=== PATIENT | female | born 1975 | race Caucasian/White ===

== ENCOUNTER → 2016-08-16 | Outpatient (CLI) | payer OTHER ==
[~2016-08-16] MED LIST: IRON TABLETS325 MG PO; MOTRIN 800800 MG/TAB PO; PERCOCET 325 MG1 TA2 PO; PRENATAL PO; ZITHROMAX Z PA250 MG PO
== END ==
LOC: SUN.DIA 09:39
DX: O24.419 Gestational diabetes mellitus in pregnancy, unspecified control (principal); Z3A.32 32 weeks gestation of pregnancy; Z71.3 Dietary counseling and surveillance
CPT/HCPCS: G0108

== ENCOUNTER → 2016-08-31 | Outpatient (CLI) | payer OTHER | LOC: SUN.DIA 09:31 | DX: O24.419 Gestational diabetes mellitus in pregnancy, unspecified control (principal); Z3A.33 33 weeks gestation of pregnancy; Z71.3 Dietary counseling and surveillance | CPT/HCPCS: G0108 ==

== ENCOUNTER 2016-09-05 13:36 | Inpatient (IN) | payer OTHER ==
[~2016-09-05] VITALS: Ht 152.4 cm; Wt 70.9 kg
[2016-09-05] MEDS ORDERED: PRENATAL PO (13:44)
[2016-09-05 14:23] LABS: BASO % 0.3 % (0.0-2.0); EOS # 0.1 (0.0-0.7); EOS % 0.3 % (0-4.0); GRAN # 12.6 (1.4-6.5); GRAN % 84.7 % (42.2-75.2); HEMOGLOBIN 12.1 g/dl (12.5-16.0); LYMPH # 0.9 (1.2-3.4); LYMPH % 5.9 % (20.0-51.0); MEAN CELL VOLUME 82 fl (80.0-100.0); MEAN CORPUSCULAR HEMOGLOBIN 27 pg (27.0-31.0); MEAN CORPUSCULAR HGB CONC 33 g/dl (33.0-37.0); MEAN PLATELET VOLUME 9.3 fl (7.4-10.4); MONO # 1.1 (0.1-0.6); MONO % 7.4 % (1.7-9.3); PLATELET COUNT 245 K/mm3 (130-400); RED BLOOD COUNT 4.44 M/mm3 (4.10-5.30); REDCELL DISTRIBUTION WIDTH-CV 14.2 % (11.5-14.5); WHITE BLOOD COUNT 14.8 K/mm3 (4.8-10.8)
[2016-09-05 14:29] LABS: HEMATOCRIT 36.4 % (37.0-47.0)
[2016-09-05 14:37] LABS: ADJUSTED CALCIUM 9.3 mg/dL (8.4-10.2); ALBUMIN 3.5 gm/dL (3.5-5.0); BILIRUBIN,TOTAL 0.5 mg/dL (0.0-1.0); CALCIUM 8.9 mg/dL (8.4-10.2); CREATININE, serum 0.5 mg/dL (0.52-1.25); POTASSIUM 3.6 mmol/L (3.4-5.0); TOTAL PROTEIN 7.2 gm/dL (6.4-8.2)
[2016-09-05 14:39] LABS: INFLUENZA B NEGATIVE
[2016-09-05 17:30] VITALS: BP 141/67; PULSE 124; TEMP 101.8
[2016-09-05 17:37] LABS: PH 6 (5-8); SQUAMOUS EPITHELIAL 0-2 /hpf; URINE APPEARANCE Clear; URINE BACTERIA Rare /hpf; URINE BILIRUBIN Negative (NEGATIVE); URINE BLOOD Negative (NEGATIVE); URINE COLOR Yellow; URINE GLUCOSE Negative (NEGATIVE); URINE KETONE 1+ (NEGATIVE); URINE RBC 0-2 /hpf; URINE UROBILINOGEN Negative (NEGATIVE); URINE WBC 0-2 /hpf
[2016-09-05 18:38] LABS: BASO % 0.3 % (0.0-2.0); EOS % 0.1 % (0-4.0); GRAN # 12.4 (1.4-6.5); GRAN % 84.7 % (42.2-75.2); LYMPH # 0.8 (1.2-3.4); LYMPH % 5.5 % (20.0-51.0); MEAN CELL VOLUME 81 fl (80.0-100.0); MEAN CORPUSCULAR HGB CONC 34 g/dl (33.0-37.0); MEAN PLATELET VOLUME 9.5 fl (7.4-10.4); MONO # 1.1 (0.1-0.6); MONO % 7.8 % (1.7-9.3); PLATELET COUNT 243 K/mm3 (130-400); RED BLOOD COUNT 4.01 M/mm3 (4.10-5.30); REDCELL DISTRIBUTION WIDTH-CV 14.2 % (11.5-14.5); WHITE BLOOD COUNT 14.7 K/mm3 (4.8-10.8)
[2016-09-05 18:46] LABS: HEMATOCRIT 32.5 % (37.0-47.0); MEAN CORPUSCULAR HEMOGLOBIN 27 pg (27.0-31.0)
[2016-09-05 18:48] LABS: ADJUSTED CALCIUM 9.1 mg/dL (8.4-10.2); ALBUMIN 3.1 gm/dL (3.5-5.0); BILIRUBIN,TOTAL 0.5 mg/dL (0.0-1.0); CALCIUM 8.4 mg/dL (8.4-10.2); CREATININE, serum 0.47 mg/dL (0.52-1.25); POTASSIUM 3.2 mmol/L (3.4-5.0); TOTAL PROTEIN 6.7 gm/dL (6.4-8.2)
[2016-09-05 19:15] LABS: URIC ACID 3.4 mg/dL (2.5-6.2)
[2016-09-05 19:30] VITALS: TEMP 100.7
[2016-09-05 21:30] VITALS: BP 123/68; PULSE 118; TEMP 98.8
[2016-09-06 01:15] VITALS: BP 117/68; PULSE 104; TEMP 98.1
[2016-09-06 04:45] VITALS: BP 118/70; PULSE 99; TEMP 98.5
[2016-09-06 06:50] VITALS: BP 102/63; PULSE 93; TEMP 98
[2016-09-06 08:44] LABS: BASO % 0.3 % (0.0-2.0); EOS % 0.1 % (0-4.0); GRAN # 11.5 (1.4-6.5); GRAN % 81.5 % (42.2-75.2); LYMPH # 1.3 (1.2-3.4); LYMPH % 8.9 % (20.0-51.0); MEAN CELL VOLUME 83 fl (80.0-100.0); MEAN CORPUSCULAR HGB CONC 33 g/dl (33.0-37.0); MEAN PLATELET VOLUME 9.3 fl (7.4-10.4); MONO # 1.1 (0.1-0.6); MONO % 7.8 % (1.7-9.3); PLATELET COUNT 228 K/mm3 (130-400); RED BLOOD COUNT 3.88 M/mm3 (4.10-5.30); REDCELL DISTRIBUTION WIDTH-CV 14.5 % (11.5-14.5); WHITE BLOOD COUNT 14.1 K/mm3 (4.8-10.8)
[2016-09-06 09:00] VITALS: BP 103/66; PULSE 84; TEMP 97.6
[2016-09-06 09:00] LABS: HEMATOCRIT 32.2 % (37.0-47.0); HEMOGLOBIN 10.7 g/dl (12.5-16.0); MEAN CORPUSCULAR HEMOGLOBIN 28 pg (27.0-31.0)
[2016-09-06 09:03] LABS: ADJUSTED CALCIUM 9.4 mg/dL (8.4-10.2); ALBUMIN 2.9 gm/dL (3.5-5.0); BILIRUBIN,TOTAL 0.3 mg/dL (0.0-1.0); CALCIUM 8.5 mg/dL (8.4-10.2); CREATININE, serum 0.4 mg/dL (0.52-1.25); POTASSIUM 3.7 mmol/L (3.4-5.0); TOTAL PROTEIN 6.1 gm/dL (6.4-8.2)
[2016-09-06] MEDS ORDERED: IRON TABLETS325 MG PO (10:10)
[2016-09-06] MEDS ORDERED: ZITHROMAX Z PA250 MG PO (10:10)
== END 2016-09-06 10:35 | disposition home or self-care (01) | DRG 781 ==
LOC: COL.ER 13:36 → OB 15:20
PROVIDERS: Emergency Medicine; Family Medicine; Obstetrics & Gynecology
DX: O98.813 Other maternal infectious and parasitic diseases complicating pregnancy, third trimester (principal); A41.9 Sepsis, unspecified organism; E87.1 Hypo-osmolality and hyponatremia; O99.283 Endocrine, nutritional and metabolic diseases complicating pregnancy, third trimester; O24.410 Gestational diabetes mellitus in pregnancy, diet controlled; O09.523 Supervision of elderly multigravida, third trimester; O99.013 Anemia complicating pregnancy, third trimester; Z3A.33 33 weeks gestation of pregnancy
CPT/HCPCS: J0696; J7030

== ENCOUNTER → 2016-09-07 | Outpatient (CLI) | payer OTHER | LOC: SUN.DIA 12:54 | DX: O24.419 Gestational diabetes mellitus in pregnancy, unspecified control (principal); Z3A.34 34 weeks gestation of pregnancy; Z71.3 Dietary counseling and surveillance | CPT/HCPCS: G0108 ==

== ENCOUNTER 2016-09-22 16:36 | Inpatient (IN) | payer MEDICAID ==
[~2016-09-22] VITALS: Ht 152.4 cm; Wt 71.4 kg
[~2016-09-22 16:36] MED LIST changes: -MOTRIN 800800 MG/TAB PO; -PERCOCET 325 MG1 TA2 PO
[2016-10-12] VITALS (56 sets, daily range): BP systolic 98–178; BP diastolic 53–98; PULSE 68–97; TEMP 97.8–99.7
[2016-10-12 08:30] LABS: BASO % 0.4 % (0.0-2.0); EOS # 0.3 (0.0-0.7); EOS % 3.8 % (0-4.0); GRAN # 5.3 (1.4-6.5); HEMOGLOBIN 12.1 g/dl (12.5-16.0); LYMPH # 1.6 (1.2-3.4); LYMPH % 20.5 % (20.0-51.0); MEAN CELL VOLUME 83 fl (80.0-100.0); MEAN CORPUSCULAR HEMOGLOBIN 28 pg (27.0-31.0); MEAN CORPUSCULAR HGB CONC 34 g/dl (33.0-37.0); MEAN PLATELET VOLUME 10.4 fl (7.4-10.4); MONO # 0.6 (0.1-0.6); MONO % 7.2 % (1.7-9.3); PLATELET COUNT 205 K/mm3 (130-400); REDCELL DISTRIBUTION WIDTH-CV 15.3 % (11.5-14.5); WHITE BLOOD COUNT 7.9 K/mm3 (4.8-10.8)
[2016-10-12 08:31] LABS: HEMATOCRIT 35.5 % (37.0-47.0)
[2016-10-12] MEDS ORDERED: MOTRIN 800800 MG/TAB PO (12:33)
[2016-10-12] MEDS ORDERED: PERCOCET 325 MG1 TA2 PO (12:33)
[2016-10-13 02:10] VITALS: BP 97/53; PULSE 89; TEMP 98.4
[2016-10-13 07:53] LABS: HEMATOCRIT 29.2 % (37.0-47.0); HEMOGLOBIN 9.9 g/dl (12.5-16.0)
[2016-10-13 08:15] VITALS: BP 109/91; PULSE 80; TEMP 97.6
[2016-10-13 12:50] VITALS: BP 101/60; PULSE 84; TEMP 97.9
[2016-10-13 16:50] VITALS: BP 111/63; PULSE 78; TEMP 97.5
[2016-10-13 22:00] VITALS: BP 121/63; PULSE 87; TEMP 98.4
[2016-10-14 08:15] VITALS: BP 119/68; PULSE 78; TEMP 97.5
== END 2016-10-14 13:25 | disposition home or self-care (01) | DRG 765 ==
LOC: LDR 10-12 06:57 → OB 10-12 19:40 → EDSTATUS 10-19 08:29 → LDRO 10-19 16:35
PROVIDERS: Obstetrics & Gynecology
PROC: 10D00Z1 Extraction of Products of Conception, Low, Open Approach (ICD-10-PCS; principal; 2016-10-12)
PROC: 3E033VJ Introduction of Other Hormone into Peripheral Vein, Percutaneous Approach (ICD-10-PCS; 2016-10-12)
DX: O24.420 Gestational diabetes mellitus in childbirth, diet controlled (principal); D62 Acute posthemorrhagic anemia; O99.02 Anemia complicating childbirth; O09.523 Supervision of elderly multigravida, third trimester; O76 Abnormality in fetal heart rate and rhythm complicating labor and delivery; O62.1 Secondary uterine inertia; Z87.51 Personal history of pre-term labor; Z3A.39 39 weeks gestation of pregnancy; Z37.0 Single live birth
CPT/HCPCS: J0690; J1885; J2270; J2370; J2405; J2590; J2795; J7120